=== PATIENT | female | born 1990 | race Caucasian/White ===

== ENCOUNTER 2016-10-30 11:24 | Emergency (ER) | payer OTHER ==
[2016-10-30 11:31] VITALS: TEMP 97.7
--- NOTE | 2016-10-30 11:52 | EDPHY ---
H & P Time Seen by Provider: 10/30/16 11:37 HPI/ROS: This is a 25-year-old female presenting to the emergency department complaining of abdominal bloating pain discomfort. She states she has a diary of when initial symptoms started, 10/23 she started with bloating and nausea, 10/24 continued bloating with nausea vomiting increased abdominal pain at night she states she took quite a few Pepto-Bismol chewable tablets , on 10/25 positive nausea decrease in appetite, 10/27- positive nausea no bowel movement 10/29 had some dark brown stools with abdominal pain 10/30 woke up at 2:30 a.m. morning with abdominal pain in the umbilical area with dark brown stools and some diarrhea. patient states she never had any blood in her stools only dark but she thinks it is because of the Pepto-Bismol. Reports decrease in appetite, no fever chills no active vomiting. Patient does report had something similar in August 2016 had some blood work done but no CT scan. Symptoms are are similar to what happened in August. REVIEW OF SYSTEMS: Constitutional: No fever chills, decreased p.o. intake Eyes: No blurred vision ENT: No sore throat Respiratory: No cough or shortness of breath Cardiac: No chest pain Gastrointestinal: Positive abdominal cramping with nausea vomiting some diarrhea Musculoskeletal: No body aches Skin: No rash Neurological: No headache or dizziness Smoking Status: Never smoked Physical Exam: CONSTITUTIONAL: patient appeared well nourished, non-ill appearing and normally developed. No acute distress. Vital signs as documented. HEENT: Normocephalic atraumatic Oropharynx normal NECK: Supple, FROM without pain RESP: Non-labored resp effort, airway patent, CTAB CARDIAC: RRR w/o murmur, fiorella. Normal S1/S2 GI: Abd soft nondistended, diffuse tenderness around umbilical area no rebound tenderness no discoloration NEURO: AAOx3 EXTREMITIES: FROM without pain or difficulty. SKIN: Warm and dry, no rash PSYCH: Normal affect, calm, no distress Constitutional: Initial Vital Signs Temperature (C) 36.5 C 10/30/16 11:28 Heart Rate 77 10/30/16 11:28 Respiratory Rate 18 10/30/16 11:28 Blood Pressure 98/73 L 10/30/16 11:28 O2 Sat (%) 95 10/30/16 11:28 O2 Delivery Mode Room Air Allergies/Adverse Reactions: Penicillins Allergy (Verified 10/30/16 11:27) Home Medications: Medication Instructions Recorded Pepto-Bismol oral liquid (*) 10/30/16 Medical Decision Making - Diagnostics Imaging: History: Upper abdominal pain, black stools Technique: 64 slice volumetric data set helical CT obtained through the abdomen and pelvis during bolus administration of 80 mL Isovue-300 nonionic contrast without complication. Images are reviewed on the computer workstation. Dose reduction techniques were utilized. Comparison: None Findings: Abdomen-There is prominent fecal material throughout the colon suggesting constipation. The liver and spleen are normal in size and homogeneous. There is no biliary dilatation. The gallbladder, pancreas, and kidneys look normal. The adrenal glands and retroperitoneum look normal. There is no ascites or evidence for bowel obstruction. The lung bases are well aerated without pleural fluid. Heart size is normal without pericardial effusion. Pelvis: Urinary bladder looks normal. There is no pelvic adenopathy or free fluid. There is no retroperitoneal or inguinal adenopathy. I suspect there is a normal appendix medial to the cecum. Is no secondary evidence of appendicitis. There is a suspicion of multiple small cysts in each ovary , both of which are prominent in size, raising the possibility of polycystic ovarian disease. Impression: 1. Constipation. 2. Possible polycystic ovarian disease. If clinically indicated consider pelvic ultrasound. Results discussed with Suzanne Bhandari 2:05 PM General information for patients regarding this examination can be found at [email or web address]. If you have questions or comments about this report, please contact me at (hospital) or [phone] (cell). Dictated By: Jaime Rosenbaum MD ED Course/Re-evaluation: Discussed plan of care with patient: CT of abdomen pelvis positive for constipation, labs drawn all unremarkable. Discharge home--> stable, discussed discharge instructions with patient Differential Diagnosis: Differential diagnosis considered but not limited to small obstruction, gastritis and diverticulitis - Data Points Laboratory Results: Laboratory Results 10/30/16 11:44 10/30/16 11:44 10/30/16 10/30/16 10/30/16 13:05 13:05 11:44 WBC RBC Hgb Hct MCV MCH MCHC RDW Plt Count MPV Neut % (Auto) Lymph % (Auto) Burt % (Auto) Eos % (Auto) Baso % (Auto) Nucleat RBC Rel Count Absolute Neuts (auto) Absolute Lymphs (auto) Absolute Monos (auto) Absolute Eos (auto) Absolute Basos (auto) Absolute Nucleated RBC Immature Gran % Immature Gran # Sodium Potassium Chloride Carbon Dioxide Anion Gap BUN Creatinine Estimated GFR Glucose Calcium Lipase Beta HCG, Qual NEGATIVE Urine Color PALE YELLOW Urine Appearance CLEAR Urine pH 7.0 (5.0-7.5) Ur Specific [place] 1.021 (1.002-1.030) Urine Protein NEGATIVE (NEGATIVE) Urine Ketones NEGATIVE (NEGATIVE) Urine Blood NEGATIVE (NEGATIVE) Urine Nitrate NEGATIVE (NEGATIVE) Urine Bilirubin NEGATIVE (NEGATIVE) Urine Urobilinogen NEGATIVE EU EU (0.2-1.0) Ur Leukocyte Esterase NEGATIVE (NEGATIVE) Ur Culture Indicated? NOT INDICATED (NI) Urine Glucose NEGATIVE (NEGATIVE) Stool Occult Bld Scrn NEGATIVE (NEGATIVE) 10/30/16 10/30/16 11:44 11:44 WBC 8.31 10^3/uL 10^3/uL (3.80-9.50) RBC 4.79 10^6/uL 10^6/uL (4.18-5.33) Hgb 14.0 g/dL g/dL (12.6-16.3) Hct 41.9 % % (38.0-47.0) MCV 87.5 fL fL (81.5-99.8) MCH 29.2 pg pg (27.9-34.1) MCHC 33.4 g/dL g/dL (32.4-36.7) RDW 13.7 % % (11.5-15.2) Plt Count 243 10^3/uL 10^3/uL (150-400) MPV 11.0 fL fL (8.7-11.7) Neut % (Auto) 69.1 % % (39.3-74.2) Lymph % (Auto) 24.5 % % (15.0-45.0) Burt % (Auto) 5.2 % % (4.5-13.0) Eos % (Auto) 0.8 % % (0.6-7.6) Baso % (Auto) 0.2 % L % (0.3-1.7) Nucleat RBC Rel Count 0.0 % % (0.0-0.2) Absolute Neuts (auto) 5.73 10^3/uL 10^3/uL (1.70-6.50) Absolute Lymphs (auto) 2.04 10^3/uL 10^3/uL (1.00-3.00) Absolute Monos (auto) 0.43 10^3/uL 10^3/uL (0.30-0.80) Absolute Eos (auto) 0.07 10^3/uL 10^3/uL (0.03-0.40) Absolute Basos (auto) 0.02 10^3/uL 10^3/uL (0.02-0.10) Absolute Nucleated RBC 0.00 10^3/uL 10^3/uL (0-0.01) Immature Gran % 0.2 % % (0.0-1.1) Immature Gran # 0.02 10^3/uL 10^3/uL (0.00-0.10) Sodium 144 mEq/L mEq/L (134-144) Potassium 3.8 mEq/L mEq/L (3.5-5.2) Chloride 103 mEq/L mEq/L (97-110) Carbon Dioxide 28 mEq/l mEq/l (22-31) Anion Gap 13 mEq/L mEq/L (8-16) BUN 18 mg/dL mg/dL (7-23) Creatinine 0.9 mg/dL mg/dL (0.6-1.0) Estimated GFR > 60 Glucose 97 mg/dL mg/dL (70-100) Calcium 10.0 mg/dL mg/dL (8.5-10.4) Lipase 101.0 IU/L IU/L (23-300) Beta HCG, Qual Urine Color Urine Appearance Urine pH Ur Specific [place] Urine Protein Urine Ketones Urine Blood Urine Nitrate Urine Bilirubin Urine Urobilinogen Ur Leukocyte Esterase Ur Culture Indicated? Urine Glucose Stool Occult Bld Scrn Departure - Departure Disposition: Home, Routine, Self-Care Clinical Impression: Functional constipation Constipation Qualifiers: Constipation type: other constipation type Qualified Code(s): K59.09 - Other constipation Condition: Good Instructions: Irritable Bowel Syndrome (ED), Constipation (ED), High Fiber Diet (ED) Additional Instructions: 1. I would recommend decreasing Pepto-Bismol intake 2. Increase fluid intake, high-fiber diet 3. MiraLax for the next few days 4. Follow up with primary care as needed. If any symptoms worsen or become life-threatening unable to tolerate any p.o. intake unable to have a bowel movement for several days or blood in your stool return to the emergency department Referrals: Chinyere Ramirez MD [Primary Care Provider] - As per Instructions
[2016-10-30 11:59] LABS: % IMMATURE GRANULYOCYTES 0.2 % (0.0-1.1); ABSOLUTE IMMATURE GRANULOCYTES 0.02 10^3/uL (0.00-0.10); ADD DIFF? NO; ADD MORPH? NO; ADD SCAN? NO; ATYPICAL LYMPHOCYTE FLAG 50 (0-99); FRAGMENT RBC FLAG 0 (0-99); HEMATOCRIT 41.9 % (38.0-47.0); LEFT SHIFT FLG 0 (0-99); LIPEMIA HEMOLYSIS FLAG 80 (0-99); MEAN CELL HEMOGLOBIN 29.2 pg (27.9-34.1); MEAN CELL HEMOGLOBIN CONCENTR. 33.4 g/dL (32.4-36.7); MEAN CELL VOLUME 87.5 fL (81.5-99.8); PLATELET CLUMPS FLAG 10 (0-99); PLATELET COUNT 243 10^3/uL (150-400); RED BLOOD CELL COUNT 4.79 10^6/uL (4.18-5.33); RED CELL DISTRIBUTION WIDTH 13.7 % (11.5-15.2)
[2016-10-30 12:02] VITALS: PULSE 72
[2016-10-30 12:06] LABS: ANION GAP 13 mEq/L (8-16); CARBON DIOXIDE 28 mEq/l (22-31); CHLORIDE 103 mEq/L (97-110); CREATININE 0.9 mg/dL (0.6-1.0); GLOMERULAR FILTRATION RATE > 60; GLUCOSE 97 mg/dL (70-100); POTASSIUM 3.8 mEq/L (3.5-5.2); SODIUM 144 mEq/L (134-144)
[2016-10-30] MEDS ORDERED: IOPAMIDOL (ISOVUE-300) 100 ML BTL IV ONE (13:24)
[2016-10-30 14:18] LABS: COLOR PALE YELLOW; LEUKOCYTE ESTERASE,URINE NEGATIVE (NEGATIVE); NITRITE,URINE NEGATIVE (NEGATIVE)
[2016-10-30 15:35] VITALS: BP 109/78; RESP 16; O2SAT 97
== END 2016-10-30 15:15 | disposition home or self-care (01) ==
DX: K59.09 Other constipation (principal)
CPT/HCPCS: Q9967